=== PATIENT | male | born 1990 | race African-American/Black ===

== ENCOUNTER 2019-02-11 03:53 | Emergency (ER) | payer SELFPAY ==
--- NOTE | 2019-02-11 04:21 | ER ---
Nurse's Notes [facility] Name: Rangel Dow Age: 28 yrs Sex: Male : 1990 Arrival Date: 02/11/2019 Time: 03:57 Bed 19 Private MD: Diagnosis: Laceration without foreign body of unspecified part of head Presentation: 02/11 04:06 Presenting complaint: Patient states: sustained small lac under L eyebrow yesterday. No tl2 bleeding noted. Transition of care: patient was not received from another setting of care. Complicating Factors: There are no complicating factors for this patient. Onset of symptoms was February 10, 2019. Risk Assessment: Do you want to hurt yourself or someone else? Patient reports no desire to harm self or others. Initial Sepsis Screen: Does the patient meet any 2 criteria? No. Patient's initial sepsis screen is negative. Does the patient have a suspected source of infection? No. Patient's initial sepsis screen is negative. Care prior to arrival: None. 04:06 Method Of Arrival: Ambulatory tl2 04:06 Acuity: MINGO 4 tl2 Triage Assessment: 04:08 General: Appears in no apparent distress. comfortable, Behavior is calm, cooperative, tl2 appropriate for age. Pain: Denies pain. Injury Description: Laceration sustained to under L eyebrow is clean, superficial, 0.5 to 2.5 cm long, not bleeding, was sustained 12-24 hours ago. is bleeding a small amount. Historical: - Allergies: 04:08 No Known Allergies; tl2 - Home Meds: 04:08 None [Active]; tl2 - PMHx: 04:08 None; tl2 - PSHx: 04:08 None; tl2 - Immunization history:: Adult Immunizations up to date, Last tetanus immunization: > 10 years ago. - Social history:: Smoking status: Patient/guardian denies using tobacco, Patient/guardian denies using alcohol, street drugs, The patient lives alone. - Ebola Screening: : No symptoms or risks identified at this time. - Family history:: not pertinent. Screenin:10 Abuse screen: Denies threats or abuse. Nutritional screening: No deficits noted. tl2 Tuberculosis screening: No symptoms or risk factors identified. Fall Risk None identified. Assessment: 04:08 General: see triage assessment. tl2 Vital Signs: 04:08 BP 131 / 90; Pulse 79; Resp 18; Temp 98.2(O); Pulse Ox 97% on R/A; Weight 95.25 kg; tl2 Height 5 ft. 11 in. (180.34 cm); Pain 1/10; 04:08 Body Mass Index 29.29 (95.25 kg, 180.34 cm) tl2 ED Course: 03:57 Patient arrived in ED. ag3 04:02 Candelaria Allred MD is Attending Physician. ma2 04:06 Brisa Tariq RN is Primary Nurse. tl2 04:08 Triage completed. tl2 04:08 Arm band placed on right wrist. tl2 04:08 No provider procedures requiring assistance completed. Patient did not have IV access tl2 during this emergency room visit. 04:10 Patient has correct armband on for positive identification. Bed in low position. Call tl2 light in reach. Side rails up X 1. 04:20 Assist provider with laceration repair on left eye that was 2.5 cm. or less using tl2 Dermabond. Set up tray. Performed by Candelaria Allred MD Patient tolerated well. Wound care: to laceration located on left eye was cleaned with. Administered Medications: No medications were administered Outcome: 04:21 Discharge ordered by . ma2 04:43 Discharged to home ambulatory. tl2 04:43 Condition: stable 04:43 Discharge instructions given to patient, Instructed on discharge instructions, follow up and referral plans. wound care, Demonstrated understanding of instructions, follow-up care, wound care. 04:44 Patient left the ED. tl2 Signatures: Brisa Tariq RN RN 2 Candelaria Allred MD MD nd2 Margie Aviles ag3
--- NOTE | 2019-02-11 04:21 | EDPHYS ---
Physician Documentation [facility] Name: Rangel Dow Age: 28 yrs Sex: Male : 1990 Arrival Date: 02/11/2019 Time: 03:57 Bed 19 Private MD: ED Physician Candelaria Allred HPI: 02/11 04:18 This 28 yrs old Black Male presents to ER via Ambulatory with complaints of Laceration ma2 To Head. 04:18 The laceration(s) is(are) located on the left eye. Onset: The symptoms/episode ma2 began/occurred suddenly, 5 hour(s) ago. Associated signs and symptoms: Pertinent negatives: loss of consciousness, suspected foreign body. The patient has not experienced similar symptoms in the past. Historical: - Allergies: 04:08 No Known Allergies; tl2 - Home Meds: 04:08 None [Active]; tl2 - PMHx: 04:08 None; tl2 - PSHx: 04:08 None; tl2 - Immunization history:: Adult Immunizations up to date, Last tetanus immunization: > 10 years ago. - Social history:: Smoking status: Patient/guardian denies using tobacco, Patient/guardian denies using alcohol, street drugs, The patient lives alone. - Ebola Screening: : No symptoms or risks identified at this time. - Family history:: not pertinent. ROS: 04:18 Constitutional: Negative for fever, chills, and weight loss. ma2 04:18 All other systems are negative. Exam: 04:18 Constitutional: This is a well developed, well nourished patient who is awake, alert, ma2 and in no acute distress. Head/Face: left forehead laceration 0.5 cm superficial, othrwise Normocephalic, atraumatic. Eyes: Pupils equal round and reactive to light, extra-ocular motions intact. Lids and lashes normal. Conjunctiva and sclera are non-icteric and not injected. Cornea within normal limits. Periorbital areas with no swelling, redness, or edema. ENT: Nares patent. No nasal discharge, no septal abnormalities noted. Tympanic membranes are normal and external auditory canals are clear. Oropharynx with no redness, swelling, or masses, exudates, or evidence of obstruction, uvula midline. Mucous membranes moist. Neck: Trachea midline, no thyromegaly or masses palpated, and no cervical lymphadenopathy. Supple, full range of motion without nuchal rigidity, or vertebral point tenderness. No Meningismus. Chest/axilla: Normal chest wall appearance and motion. Nontender with no deformity. No lesions are appreciated. Cardiovascular: Regular rate and rhythm with a normal S1 and S2. No gallops, murmurs, or rubs. Normal PMI, no JVD. No pulse deficits. Respiratory: Lungs have equal breath sounds bilaterally, clear to auscultation and percussion. No rales, rhonchi or wheezes noted. No increased work of breathing, no retractions or nasal flaring. Abdomen/GI: Soft, non-tender, with normal bowel sounds. No distension or tympany. No guarding or rebound. No evidence of tenderness throughout. Vital Signs: 04:08 BP 131 / 90; Pulse 79; Resp 18; Temp 98.2(O); Pulse Ox 97% on R/A; Weight 95.25 kg; tl2 Height 5 ft. 11 in. (180.34 cm); Pain 110; 04:08 Body Mass Index 29.29 (95.25 kg, 180.34 cm) tl2 Laceration: 04:18 Wound Repair of 0.5cm ( 0.2in ) subcutaneous laceration to left eye. Distal ma2 neuro/vascular/tendon intact. Wound prep: Simple cleansing. Skin closed with 1-0 Adhesive skin closure using simple sutures and sterile technique. MDM: 04:02 Patient medically screened. ma2 04:18 Differential diagnosis: superficial laceration. Data reviewed: vital signs, nurses ma2 notes. Counseling: I had a detailed discussion with the patient and/or guardian regarding: the historical points, exam findings, and any diagnostic results supporting the discharge/admit diagnosis, the presence of at least one elevated blood pressure reading (>120/80) during this emergency department visit, radiology results. Response to treatment: the patient's symptoms have resolved after treatment. 02/11 04:20 Order name: Dermabond; Complete Time: 04:20 tl2 Administered Medications: No medications were administered Disposition: 02/11/19 04:21 Discharged to Home. Impression: Laceration without foreign body of unspecified part of head. - Condition is Stable. - Discharge Instructions: Facial Laceration. - Medication Reconciliation Form, Thank You Letter, Antibiotic Education, Prescription Opioid Use form. - Follow up: Private Physician; When: Tomorrow; Reason: If symptoms return. Signatures: Brisa Tariq RN RN tl2 Candelaria Allred MD MD ma2 Corrections: (The following items were deleted from the chart) 04:44 04:21 02/11/2019 04:21 Discharged to Home. Impression: Laceration without foreign body tl2 of unspecified part of head. Condition is Stable. Forms are Medication Reconciliation Form, Thank You Letter, Antibiotic Education, Prescription Opioid Use. Follow up: Private Physician; When: Tomorrow; Reason: If symptoms return. ma2
[2019-02-11] MEDS ORDERED: DERMABOND SKIN ADHESIVE TOP ONE (04:29)
== END 2019-02-11 04:44 | disposition home or self-care (01) ==
LOC: ER 03:53
PROC: 0JQ10ZZ Repair Face Subcutaneous Tissue and Fascia, Open Approach (ICD-10-PCS; principal; 2019-02-11)
DX: S01.112A Laceration without foreign body of left eyelid and periocular area, initial encounter (principal)
CPT/HCPCS: 99283

== ENCOUNTER 2021-06-04 20:28 | Emergency (ER) | payer SELFPAY | END 2021-06-04 23:03 | disposition left against medical advice (07) | LOC: ER 20:28 | DX: Z02.9 Encounter for administrative examinations, unspecified (principal) ==

== ENCOUNTER 2022-08-01 22:47 | Emergency (ER) | payer SELFPAY ==
[2022-08-01] MEDS ORDERED: AZITHROMYCIN 250 MG TAB ONE (23:37)
[2022-08-01] MEDS ORDERED: CEFTRIAXONE 1000 MG/VIAL ONE (23:37)
[2022-08-01] MEDS ORDERED: LIDOCAINE 1% MPF 2 ML AMPULE ONE (23:37)
[2022-08-02 00:06] LABS: Urine Blood 2+ (Negative); Urine Glucose Negative (Negative); Urine Protein 2+ (Negative); Urine Specific Gravity 1.025 (1.005-1.030)
--- NOTE | 2022-08-02 00:30 | EDPHYS ---
Physician Documentation [facility] Name: Rangel Dow Age: 32 yrs Sex: Male : 1990 Arrival Date: 08/01/2022 Time: 22:50 Bed 2 Private MD: ED Physician Karmen Cho HPI: 08/01 22:55 This 32 yrs old Black Male presents to ER via Ambulatory with complaints of Testicular [facility] Pain. 22:55 This is a 32-year-old male with no chronic medical conditions presents emerged [facility] department with complaints of penile pain and dysuria beginning approximately 3 days ago. Patient states he has taken Azo without relief. Denies fever. Patient denies vomiting. Historical: - Allergies: 23:06 No Known Allergies; tw5 - Home Meds: 23:06 None [Active]; tw5 - PMHx: 23:06 None; tw5 - PSHx: 23:06 None; tw5 - Immunization history:: Flu vaccine is not up to date. - Social history:: Smoking status: Patient denies any tobacco usage or history of. ROS: 22:55 Constitutional: Negative for fever, chills, and weight loss, Cardiovascular: Negative jmm for chest pain, palpitations, and edema, Respiratory: Negative for shortness of breath, cough, wheezing, and pleuritic chest pain. 22:55 : Positive for urinary symptoms. 22:55 All other systems are negative. Exam: 22:55 Constitutional: This is a well developed, well nourished patient who is awake, alert, jmm and in no acute distress. Head/Face: atraumatic. Eyes: EOMI, no conjunctival erythema appreciated ENT: Moist Mucus Membranes Neck: Trachea midline, Supple Chest/axilla: Normal chest wall appearance and motion. Cardiovascular: Regular rate and rhythm. No edema appreciated Respiratory: Normal respirations, no respiratory distress appreciated Abdomen/GI: Non distended Back: Normal ROM Skin: General appearance color normal MS/ Extremity: Moves all extremities, no obvious deformities appreciated, no edema noted to the lower extremities Neuro: Awake and alert Psych: Behavior is normal, Mood is normal, Patient is cooperative and pleasant Vital Signs: 23:03 BP 131 / 97; Pulse 103; Resp 18; Temp 98.2; Pulse Ox 98% on R/A; Weight 104.33 kg; tw5 Height 5 ft. 11 in. (180.34 cm); Pain 9/10; 08/02 00:14 BP 137 / 86; Pulse 79; Resp 18 S; Pulse Ox 97% on R/A; as6 08/01 23:03 Body Mass Index 32.08 (104.33 kg, 180.34 cm) tw5 MDM: 08/01 23:21 Patient medically screened. [facility] 08/02 00:28 Data reviewed: vital signs, nurses notes. Counseling: I had a detailed discussion with natalia the patient and/or guardian regarding: the historical points, exam findings, and any diagnostic results supporting the discharge/admit diagnosis, lab results, the need for outpatient follow up, to return to the emergency department if symptoms worsen or persist or if there are any questions or concerns that arise at home. ED course: UA is appears consistent with a urinary tract infection. Patient vies to follow-up with urology for further evaluation otherwise given strict return precautions. Patient understood and agrees plan of care.. 08/01 23:31 Order name: Urine Culture [facility] 08/02 00:06 Order name: Urine Dipstick-Ancillary; Complete Time: 00:09 [facility] 08/01 22:54 Order name: US Scrotum Testicles [facility] 08/01 23:31 Order name: Urine Dipstick-Ancillary (obtain specimen); Complete Time: 00:11 [facility] Administered Medications: 00:00 Drug: Rocephin (cefTRIAXone) 1 grams Route: IM; Site: right ventrogluteal; as6 00:37 Follow up: Response: No adverse reaction as6 00:00 Drug: AZITHromycin 1 grams Route: PO; as6 00:37 Follow up: Response: No adverse reaction as6 Disposition Summary: 08/02/22 00:29 Discharge Ordered Location: Home [facility] Condition: Stable [facility] Diagnosis - UTI/ Urinary tract infection, site not specified [facility] Followup: michelle - With: Garth Posada MD - When: 2 - 3 days - Reason: Recheck today's complaints, Continuance of care, Re-evaluation by your physician Discharge Instructions: - Discharge Summary Sheet [facility] - Urinary Tract Infection, Adult [facility] Forms: - Medication Reconciliation Form [facility] - Thank You Letter [facility] - Antibiotic Education [facility] - Prescription Opioid Use [facility] Prescriptions: - cefpodoxime 200 mg Oral Tablet - take 1 tablet by ORAL route every 12 hours for 10 days with food; 20 tablet; natalia Refills: 0, Product Selection Permitted Signatures: Dispatcher [employer] Rusty Branham PA PA jmm Wood, Tiffany tw5 Greg Sanchez RN RN as6
--- NOTE | 2022-08-02 00:30 | ER ---
Nurse's Notes [facility] Name: Rangel Dow Age: 32 yrs Sex: Male : 1990 Arrival Date: 08/01/2022 Time: 22:50 Bed 2 Private MD: Diagnosis: UTI/ Urinary tract infection, site not specified Presentation: 08/01 23:03 Chief complaint: Patient states: "I am having pain in my penis. The pain started last tw5 Friday. I thought it was just a UTI, I have been taking AZO but it is only getting worse.". Coronavirus screen: Vaccine status: Patient reports being unvaccinated. Ebola Screen: Patient negative for fever greater than or equal to 101.5 degrees Fahrenheit, and additional compatible Ebola Virus Disease symptoms Patient denies exposure to infectious person. Patient denies travel to an Ebola-affected area in the 21 days before illness onset. Initial Sepsis Screen: Does the patient meet any 2 criteria? HR > 90 bpm. Does the patient have a suspected source of infection? Yes: Dysuria/Frequency/Urgency/UTI. Risk Assessment: Do you want to hurt yourself or someone else? Patient reports no desire to harm self or others. Onset of symptoms is unknown. 23:03 Method Of Arrival: Ambulatory tw5 23:03 Acuity: MINGO 3 tw5 Triage Assessment: 23:06 General: Appears uncomfortable, Behavior is calm, cooperative, appropriate for age. tw5 Pain: Pain currently is 9 out of 10 on a pain scale. : Reports pain urgency, urinary frequency. Historical: - Allergies: 23:06 No Known Allergies; tw - Home Meds: 23:06 None [Active]; tw5 - PMHx: 23:06 None; tw5 - PSHx: 23:06 None; tw5 - Immunization history:: Flu vaccine is not up to date. - Social history:: Smoking status: Patient denies any tobacco usage or history of. Screenin:30 [facility] ED Fall Risk Assessment (Adult) Score/Fall Risk Level 0 - 2 = Low Risk. Abuse as6 screen: Denies threats or abuse. Denies injuries from another. Nutritional screening: No deficits noted. Tuberculosis screening: No symptoms or risk factors identified. Assessment: 23:30 General: Appears in no apparent distress. Behavior is calm, cooperative. Pain: as6 Complains of pain in groin. Neuro: Level of Consciousness is awake, alert, obeys commands, Oriented to person, place, time, situation. Cardiovascular: Capillary refill < 3 seconds Patient's skin is warm and dry. Respiratory: Respiratory effort is even, unlabored, Respiratory pattern is regular, symmetrical. : Reports burning with urination, pain urgency, urinary frequency. 08/02 00:15 Reassessment: Patient appears in no apparent distress at this time. Patient is alert, as6 oriented x 3, equal unlabored respirations, skin warm/dry/pink. Vital Signs: 08/01 23:03 BP 131 / 97; Pulse 103; Resp 18; Temp 98.2; Pulse Ox 98% on R/A; Weight 104.33 kg; tw5 Height 5 ft. 11 in. (180.34 cm); Pain 9/10; 08/02 00:14 BP 137 / 86; Pulse 79; Resp 18 S; Pulse Ox 97% on R/A; as6 08/01 23:03 Body Mass Index 32.08 (104.33 kg, 180.34 cm) tw5 ED Course: 08/01 22:50 Patient arrived in ED. es 22:53 Rusty Angulo PA is PHCP. jmm 22:53 Karmen Cho MD is Attending Physician. [facility] 23:03 Rekha Calloway is Primary Nurse. tw5 23:05 Triage completed. tw5 23:06 Arm band placed on Patient placed in an exam room. tw5 23:31 Placed in gown. Bed in low position. Call light in reach. as6 08/02 00:08 US Scrotum Testicles In Process Unspecified. EDMS 00:11 Urine Culture Sent. as6 00:11 No provider procedures requiring assistance completed. Patient did not have IV access as6 during this emergency room visit. 00:29 Garth Posada MD is Referral Physician. [facility] Administered Medications: 00:00 Drug: Rocephin (cefTRIAXone) 1 grams Route: IM; Site: right ventrogluteal; as6 00:37 Follow up: Response: No adverse reaction as6 00:00 Drug: AZITHromycin 1 grams Route: PO; as6 00:37 Follow up: Response: No adverse reaction as6 Medication: 08/01 23:31 VIS not applicable for this client. as6 Outcome: 08/02 00:29 Discharge ordered by MD. fisher 00:37 Discharged to home ambulatory, with friend. as6 00:37 Condition: stable 00:37 Discharge instructions given to patient, Instructed on discharge instructions, follow up and referral plans. medication usage, Demonstrated understanding of instructions, follow-up care, medications, Prescriptions given X 1. 00:38 Patient left the ED. as6 09:55 Prescriptions given X changed cefpodoxime to cipro 500 BID X 7 days iw Signatures: Dispatcher [employer] EDMS Rusty Angulo PA PA jmm Salyer, Edna es Williams, Irene, RN RN Rekha Moore tw5 Greg Sanchez RN RN as6 Corrections: (The following items were deleted from the chart) 00:12 00:11 Discharged to home ambulatory, as6 as6 00:12 00:11 Discharge instructions given to patient, Instructed on discharge instructions, as6 follow up and referral plans. Demonstrated understanding of instructions, follow-up care, as6 00:12 00:11 Condition: stable as6 as6 00:12 00:12 BP 141 / 88; Pulse 81bpm; Resp 18bpm; Spontaneous; Pulse Ox 100% RA; as6 as6
[2022-08-02 00:44] VITALS: TEMP 98.2
[2022-08-02 00:45] VITALS: BP 137/86; O2SAT 97
--- NOTE | 2022-08-02 15:38 | RAD REPORT ---
EXAM DESCRIPTION: US - Scrotum Testicles - 08/02/2022 12:02 am CLINICAL HISTORY: Scrotal pain COMPARISON: None TECHNIQUE: Grayscale, color Doppler, and duplex Doppler images of scrotum. FINDINGS: Both testicles appear unremarkable in parenchyma and size. Right testicle measures 3.7 x 1.9 x 2.7 cm. Left testicle measures 3.6 x 1.8 x 2.7 cm. Both testicles show normal color flow and Doppler waveform. No testicular torsion or mass. Both epididymides unremarkable. No significant hydrocele. IMPRESSION: Unremarkable US scrotum/testicles. Electronically signed by: Jackson Ramirez MD 08/02/2022 12:40 AM USABILITY ENGINEER Due to temporary technical issues with the PACS/Fluency reporting system, reports are being signed by the in house radiologists without review as a courtesy to insure prompt reporting. The interpreting radiologist is fully responsible for the content of the report.
== END 2022-08-02 00:38 | disposition home or self-care (01) ==
LOC: ER 22:47
DX: N39.0 Urinary tract infection, site not specified (principal)
CPT/HCPCS: 76870; 81003; 87086; 87088; 96372; 99284; Q0144

== ENCOUNTER 2024-01-26 11:01 | Emergency (ER) | payer SELFPAY ==
--- NOTE | 2024-01-26 12:56 | RAD REPORT ---
EXAM DESCRIPTION: RAD - Hand Right 3 View - 01/26/2024 12:02 pm CLINICAL HISTORY: PAIN COMPARISON: Hand Right 2 View dated 01/13/2016 TECHNIQUE: Right hand, 3 views. FINDINGS: No fracture is identified. There is no dislocation or periosteal reaction noted. Soft tissue swelling about the knuckles. No for eign body or other soft tissue abnormality. IMPRESSION: Soft tissue swelling about the knuckles. No acute osseus abnormality.
[2024-01-26] MEDS ORDERED: AMOX/K CLAV 875 MG TAB ONE (13:51)
[2024-01-26] MEDS ORDERED: TDAP (DIPHTH,PERTUSS(ACELL),TET VAC) 0.5 ML VIAL IMVAC ONE (13:52)
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
--- NOTE | 2024-01-26 14:01 | ER ---
Nurse's Notes [facility] Name: Rangel Dow Age: 33 yrs Sex: Male : 1990 Arrival Date: 01/26/2024 Time: 11:01 Bed DX4 Private MD: Diagnosis: Laceration without foreign body of right hand, initial encounter;Sprain of other part of right wrist and hand Presentation: 01/25 11:44 Chief complaint: Patient states: "Somebody's tooth fell on my hand this morning around jl7 5." 2 centimeter laceration noted to right middle finger. Coronavirus screen: At this time, the client does not indicate any symptoms associated with coronavirus-19. Ebola Screen: No symptoms or risks identified at this time. Initial Sepsis Screen: Does the patient meet any 2 criteria? No. Patient's initial sepsis screen is negative. Does the patient have a suspected source of infection? No. Patient's initial sepsis screen is negative. Risk Assessment: Do you want to hurt yourself or someone else? Patient reports no desire to harm self or others. Onset of symptoms was January 26, 2024. 11:44 [facility] 11:44 Acuity: MINGO 4 jl7 Triage Assessment: 11:48 General: Appears in no apparent distress. uncomfortable, Behavior is calm, cooperative, jl7 appropriate for age. Pain: Complains of pain in right hand Pain currently is 8 out of 10 on a pain scale. Musculoskeletal: Swelling present in right hand. Injury Description: Laceration sustained to right hand. Historical: - Allergies: 11:48 No Known Allergies; jl7 - Home Meds: 11:48 None [Active]; jl7 - PMHx: 11:48 None; jl7 - Immunization history:: Adult Immunizations unknown. - Infectious Disease History:: Denies. - Social history:: Smoking status: Patient denies any tobacco usage or history of. Screenin:00 [facility] ED Fall Risk Assessment (Adult) History of falling in the last 3 months, jl7 including since admission No falls in past 3 months (0 pts) Confusion or Disorientation No (0 pts) Intoxicated or Sedated No (0 pts) Impaired Gait No (0 pts) Mobility Assist Device Used No (0 pt) Altered Elimination No (0 pt) Score/Fall Risk Level 0 - 2 = Low Risk Oriented to surroundings, Maintained a safe environment. Abuse screen: Denies threats or abuse. Denies injuries from another. Nutritional screening: No deficits noted. Tuberculosis screening: No symptoms or risk factors identified. Vital Signs: 11:44 BP 163 / 96; Pulse 90; Resp 17; Temp 98.5; Pulse Ox 99% ; Weight 104.33 kg; Height 5 jl7 ft. 11 in. ; Pain 8/10; 14:07 BP 148 / 98; Pulse 83; Resp 15; Pulse Ox 98% ; jl7 11:44 Body Mass Index 32.08 (104.33 kg, 180.34 cm) jl7 11:44 Pain Scale: Adult jl7 ED Course: 11:03 Patient arrived in ED. mr 11:03 Kimberly Valdez PA-C is PHCP. sb4 11:03 Roge Herrmann MD is Attending Physician. sb4 11:48 Triage completed. jl7 11:48 Arm band placed on right wrist. Patient placed in waiting room, Patient notified of jl7 wait time. 12:03 Hand Right 3 View XRAY In Process Unspecified. EDMS 13:48 Ranjna Montemayor, RN is Primary Nurse. jl7 14:00 Patient has correct armband on for positive identification. Provided Education on: jl7 wound care. 14:01 No provider procedures requiring assistance completed. Patient did not have IV access jl7 during this emergency room visit. 14:01 Wound care: to laceration located on right hand was cleaned with Hibiclens, dressed jl7 with Neosporin, band aid, Patient tolerated well. Administered Medications: 13:59 Drug: Boostrix Tdap IM 0.5 ml IM once; as a single dose Route: IM; Site: right deltoid; jl7 14:17 Follow up: Response: No adverse reaction jl7 14:00 Drug: Amoxicillin-Clavulanate PO 875 mg PO once Route: PO; jl7 14:16 Follow up: Response: Medication administered at discharge. jl7 Medication: 14:15 Vaccine Information Statement (VIS) provided today. Questions and/or concerns jl7 addressed. VIS edition date: March 09, 2021. Outcome: 14:00 Discharge ordered by . sb4 14:15 Discharged to home ambulatory, jl7 14:15 Condition: stable 14:15 Discharge instructions given to patient, family, Instructed on discharge instructions, follow up and referral plans. medication usage, Demonstrated understanding of instructions, follow-up care, medications, Prescriptions given X 1, 14:16 Patient left the ED. jl7 Signatures: Dispatcher [employer] EDID Daphne Barrera, Praveen ScottalRanjan, RN RN Kimberly Bueno, ANDREINA PACate sb4 Corrections: (The following items were deleted from the chart) 11:49 11:48 PSHx: None; ilia morillo
[2024-01-26 20:46] VITALS: BP 148/98; TEMP 98.5; O2SAT 98
== END 2024-01-26 14:16 | disposition home or self-care (01) ==
LOC: ER 11:01
DX: S61.411A Laceration without foreign body of right hand, initial encounter (principal); S63.8X1A Sprain of other part of right wrist and hand, initial encounter